=== PATIENT | female | born 1955 | race Caucasian/White ===

== ENCOUNTER 2017-04-22 14:46 | Inpatient (IN) | payer MEDICARE ==
[2017-04-22 15:15] VITALS: BMI 17.5
[2017-04-22] MEDS ORDERED: Temazepam 15 MG CAP PO PRN (15:21)
[2017-04-22] MEDS ORDERED: Milk Of Magnesia 30 ML UDCUP PO PRN (15:25)
[2017-04-22 15:57] LABS: Hematocrit 50.7 % (36.0-47.0); Mean Platelet Volume 7.9 fL (7.4-10.4); Red Blood Cell (RBC) Count 4.78 mill/uL (4.20-5.40); White Blood Cell (WBC) Count 11.1 thou/uL (4.8-10.8)
[2017-04-22 16:28] LABS: #Basophils 0.1 thou/uL (0.0-0.2); #Monocytes 0.1 thou/uL (0.11-0.59); #Neutrophils 9.9 thou/uL (1.40-6.50); %Eosinophils 0.2 % (0.0-10.0); %Lymphocytes 9.3 % (21.0-51.0); %Monocytes 0.9 % (0.0-10.0); Macrocytosis SLIGHT = 6-15 cells (100X) (0-5/hpf)
[2017-04-22] MEDS ORDERED: Meropenem 2 GM in Admixture Fee 1 EACH IVPB SCH (17:00)
[2017-04-22] MEDS: Sodium Chloride 0.45% 1,000 ML IV SCH (17:32)
--- NOTE | 2017-04-22 17:41 | RAD ---
PORTABLE AP CHEST X-RAY 04/22/17 HISTORY: Pneumonia. COMPARISON: 02/06/17 as well as study on 10/05/16. Again noted are diffuse increased interstitial opacities throughout the lungs bilaterally, much grea ter in the right mid lung zone and at the right lung base. There is stable blunting of the right lat eral costophrenic angle probably related to pleural and parenchymal scarring. Cardiac silhouette is magnified by projection but does appear mildly enlarged. This is also a stable finding. There has be en no interval change compared to prior exams. IMPRESSION: 1. Stable interstitial fibrotic lung changes especially greater at the right lung. 2. Cardiomegaly. 3. No acute cardiopulmonary process. POS: [facility]
[2017-04-22] MEDS: Meropenem 2 GM in Sodium Chloride 0.9% 100 ML IVPB SCH (17:54)
--- NOTE | 2017-04-22 20:37 | HP ---
HISTORY OF PRESENT ILLNESS: Ms. Loza is a 62-year-old female, who has noncystic fibrosis, severe bronchiectasis, pulmonary fibrosis associated with that. She is Pseudomonas colonized. She presented 2 weeks ago with complaints of hypoxia and more shortness of breath. She was blaming it on her nebulized aminoglycoside. I placed her on Cipro and prednisone. She presents today with complaints of having hemoptysis for the last 2 weeks. She says she not feel any better, although she also says she did not feel any worse. She subsequently was admitted for IV antimicrobial therapy. PAST MEDICAL HISTORY: Remarkable for, 1. History of bronchiectasis worked up extensively at [facility]. 2. History of Pseudomonas colonization. 3. No history of mycobacterial infection or colonization. FAMILY HISTORY: Negative for inherited lung disease. SOCIAL HISTORY: She is a nonsmoker, nondrinker. She smoked when she was very young. PHYSICAL EXAMINATION: VITAL SIGNS: In the office, she is afebrile, heart rate 92, respiratory rate is 20, oximetry is in the mid 80s on 3 liter flow, blood pressure 150/80. HEENT: Pupils are equal. Sclerae is anicteric. NECK: Supple. LUNGS: Remarkable for crackles in both lung bases care home up. HEART: Regular rhythm. S1 and S2 are normal. ABDOMEN: Soft and nontender. EXTREMITIES: Without clubbing, cyanosis, or edema. LABORATORY: pending. Chest x-ray is pending. IMPRESSION: Bronchitis with hemoptysis with underlying severe bronchiectasis. PLAN: Admission for IV antibiotics, IV steroids, nebulizer treatments, serial exams. Sputum and blood will be cultured. JEAND
[2017-04-22] MEDS: Famotidine 20 MG TAB PO SCH (20:40)
[2017-04-22] MEDS: guaiFENesin ER 600 MG TAB PO SCH (20:40)
--- NOTE | 2017-04-22 22:30 | CON ---
DATE OF CONSULTATION: 04/22/2017 REASON: Dyspnea, worsening cough with sputum production. HISTORY OF PRESENT ILLNESS: A 62-year-old history of non-cystic fibrosis bronchiectasis, admissions for management of respiratory decompensation. Usually, she is admitted, the same organism has been isolated repeatedly and it is a fairly sensitive strain of Pseudomonas aeruginosa. The right side is the most of the destructive areas of bronchiectasis. She is using gentamicin by an inhalation at home to try to forestall the need for admission. This time, she started having worsening sputum production with greenish appearance and sometimes hemoptysis, feeling fatigued, and more dyspneic. No fever or chills. No headaches, no sore throat, odynophagia, dysphagia. No chest pain or abdominal pain, no diarrhea, no genitourinary symptoms, no joint symptoms. PAST MEDICAL HISTORY: No cystic fibrosis, bronchiectasis, colonization with Pseudomonas aeruginosa, recent episode of influenza B infection. PAST SURGICAL HISTORY: Oophorectomy. SOCIAL HISTORY: Former smoker up to age of 23 and never smoked since. FAMILY HISTORY: Coronary artery disease. MEDICATIONS: Had been on Mucinex, Lovenox, and gentamicin inhaler. PHYSICAL EXAMINATION: VITAL SIGNS: T-max 98, BP 160/100, pulse 116, respiratory rate 24, O2 sat 88% on 4 liters. She actually appears the usual state, I see a lot of major changes. She is obviously tachypneic but does not appear to have labored breathing, very shallow respirations. SKIN: With no areas of skin breakdown. No petechia. Peripheral IV access. No lymphadenopathy. HEENT: Ocular movements are conjugate. Sclerae white. Pupils are equal. Oral cavity moist. NECK: Supple. No jugular venous distention. LUNGS: Quite coarse breath sounds with very coarse crackles particularly along the right side, but also on the left at the base. No wheezing. HEART: S1, S2 with regular rate. No S3 or S4. ABDOMEN: Soft, not distended, no tenderness. No ascites. No bladder distention and joint examination appears to be normal. She moves all extremities equally. NEUROLOGIC: Cognitive function appears to be intact. LABORATORY DATA: White cell count of 11.1, hemoglobin 15, platelets 261. Previous chemistry results with creatinine 0.82. BNP 1477 in September and she had a positive influenza B screen in September. ASSESSMENT AND DISCUSSION: Non-cystic fibrosis bronchiectasis with exacerbation. Patient will have to be started on Zosyn in view of the recent susceptibility results and check respiratory virus PCR from nasopharynx. MTDD
[2017-04-23] MEDS: Meropenem 2 GM in Sodium Chloride 0.9% 100 ML IVPB SCH (05:44)
[2017-04-23] MEDS ORDERED: FLU VACC QS2017-18 36 mo. & older 0.5 ML SYRINGE IM ONE (09:00)
[2017-04-23] MEDS: Sodium Chloride 0.45% 1,000 ML IV SCH ×2 (09:37→22:14)
[2017-04-23] MEDS: guaiFENesin ER 600 MG TAB PO SCH ×2 (09:38→21:05)
[2017-04-23] MEDS: Famotidine 20 MG TAB PO SCH ×2 (09:39→21:05)
[2017-04-23] MEDS: Enoxaparin Sodium 30 MG/0.3 ML SYRINGE SC SCH (09:39)
--- NOTE | 2017-04-23 13:05 | PRG ---
DATE OF SERVICE: 04/23/2017 SUBJECTIVE: Ms. Loza says she is feeling better today. OBJECTIVE: VITAL SIGNS: She is afebrile. Heart rate is 78, respiratory rate is 18, oximetry is 93% on 4 liter s and blood pressure 136/76. LUNGS: Remarkable for crackles bilaterally. HEART: Regular rhythm. ABDOMEN: Soft. IMAGING DATA: Chest radiograph showed no new alveolar infiltrates. IMPRESSION: 1. Severe non-cystic fibrosis bronchiectasis. 2. Bronchitis with an exacerbation of chronic obstructive pulmonary disease. 3. Acute on chronic respiratory failure on home, noninvasive ventilation at night. PLAN: Continue steroids and antimicrobial therapy. Blood cultures are negative so far. Sputum cul tures are negative so far. Gram-negative rods are seen on the Gram stain and I suspect this will be Pseudomonas. I have encouraged her to increase her activity today.
[2017-04-23] MEDS: Piperacillin/Tazobactam 4.5 GM in Sodium Chloride 0.9% 100 ML IVPB SCH ×3 (13:10→23:46)
[2017-04-23] MEDS: ALPRAZolam 0.25 MG TAB PO PRN (21:10)
[2017-04-24] MEDS: Piperacillin/Tazobactam 4.5 GM in Sodium Chloride 0.9% 100 ML IVPB SCH ×4 (05:39→23:31)
[2017-04-24] MEDS: Enoxaparin Sodium 30 MG/0.3 ML SYRINGE SC SCH (08:42)
[2017-04-24] MEDS: Famotidine 20 MG TAB PO SCH ×2 (08:42→21:11)
[2017-04-24] MEDS: guaiFENesin ER 600 MG TAB PO SCH ×2 (08:42→21:11)
[2017-04-24] MEDS: Sodium Chloride 0.45% 1,000 ML IV SCH ×2 (08:49→12:40)
[2017-04-24] MEDS: ALPRAZolam 0.25 MG TAB PO PRN (12:40)
--- NOTE | 2017-04-24 20:07 | PRG ---
DATE OF SERVICE: 04/24/2017 OBJECTIVE: VITAL SIGNS: Ms. Loza is afebrile, heart rate 88-114, respiratory rate is 20, oximetry is 92 on 4 li ters, and blood pressure 152/93. LUNGS: She still has crackles diffusely as always. HEART: Regular rhythm. ABDOMEN: Soft. Micro was reviewed. Blood culture grew gram positive. I suspect this is a contaminant, The other blood culture is negative at 48 hours. Respiratory cultures did not isolate Pseudomonas surprisingl y. IMPRESSION: Hemoptysis, status post 2 weeks of Cipro. She has improved with IV steroids, probably more than the IV antibiotics, but that is impossible to know. We will continue IV antibiotics for n ow, but at some point in the next day or two, we probably need to switch her to p.o. antibiotics. I have planned to discuss this with Infectious Disease.
[2017-04-25] MEDS: Sodium Chloride 0.45% 1,000 ML IV SCH ×2 (05:29→11:58)
[2017-04-25] MEDS: Piperacillin/Tazobactam 4.5 GM in Sodium Chloride 0.9% 100 ML IVPB SCH ×3 (05:29→17:23)
[2017-04-25] MEDS: Famotidine 20 MG TAB PO SCH ×2 (08:58→20:48)
[2017-04-25] MEDS: guaiFENesin ER 600 MG TAB PO SCH ×2 (08:58→20:48)
[2017-04-25] MEDS: Enoxaparin Sodium 30 MG/0.3 ML SYRINGE SC SCH (09:02)
--- NOTE | 2017-04-25 19:03 | PRG ---
DATE OF SERVICE: 04/25/2017 SUBJECTIVE: Ms. Loza is sitting by the bedside, sleeps about the same, still quite labored breathing , some cough, but no sputum production. No abdominal pain or diarrhea. Voiding without difficulty. No neurological symptoms. OBJECTIVE: VITAL SIGNS: T-max 97.6, tachycardic, little bit tachypneic at 22 and O2 sat 90% to 92% on 4 liters . Blood pressure 150/87. LUNGS: Some periorbital edema, coarse inspiratory crackles scattered throughout the lung nguyen as noted previously, jugular venous distention is noted on expiration only. HEART: S1, S2, regular rate, no S3 or S4. ABDOMEN: Soft and not distended, no trace edema in lower extremities. NEUROLOGIC: Nonfocal. LABORATORY DATA: White cell count 11.1, hemoglobin 15, MCV 106 and neutrophil 88%, and he is curren tly receiving Zosyn, methylprednisolone. The organism isolated again to P. aeruginosa. Previous st rains were fairly susceptible to various antimicrobials. ASSESSMENT AND DISCUSSION: Non cystic fibrosis bronchiectasis with exacerbation. No obvious pneumo nitis, just the ground-glass pattern as noted previously. Discharge planning to depend on further c linical improvement. No additional fracture identified for the decompensation at this point in time .
--- NOTE | 2017-04-25 21:33 | PRG ---
DATE OF SERVICE: 04/25/2017 SUBJECTIVE: Ms. Loza did well overnight. She says she wants to go home, which she nervous about goi ng home. OBJECTIVE: VITAL SIGNS: She is afebrile, heart rate 114, respiratory rate 22, oximetry is 92 on 4 liters, bloo d pressure 151/87. LUNGS: Remarkable for crackles bilaterally as always. HEART: Regular rhythm. ABDOMEN: Soft. PLAN: I just noticed the BNP was not run. I did write an order for one on admission, so I will ord ered one for in the morning. I would like to discharge her in the morning if possible.
[2017-04-26] MEDS: Piperacillin/Tazobactam 4.5 GM in Sodium Chloride 0.9% 100 ML IVPB SCH ×3 (00:03→12:08)
[2017-04-26] MEDS: Sodium Chloride 0.45% 1,000 ML IV SCH (04:34)
[2017-04-26 05:47] LABS: Anion Gap 11 mmol/L (10-20); BUN (Urea Nitrogen) 29 mg/dL (9.8-20.1); Calc. Creatinine Clearance 50 mL/min (70-130); Calcium 8.4 mg/dL (7.8-10.44); Carbon Dioxide 32 mmol/L (23-31); Chloride 102 mmol/L (98-107); Estimated GFR-MDRD 80
[2017-04-26 06:16] LABS: Hematocrit 44.3 % (36.0-47.0); Hypochromia SLIGHT = 6-15 cells (100X) (0-5/hpf); Macrocytosis SLIGHT = 6-15 cells (100X) (0-5/hpf); Red Blood Cell (RBC) Count 4.18 mill/uL (4.20-5.40); White Blood Cell (WBC) Count 8.8 thou/uL (4.8-10.8)
[2017-04-26 07:52] VITALS: BP 182/91; TEMP 97.7
[2017-04-26] MEDS: Famotidine 20 MG TAB PO SCH (08:08)
[2017-04-26] MEDS: guaiFENesin ER 600 MG TAB PO SCH (08:08)
[2017-04-26] MEDS: Enoxaparin Sodium 30 MG/0.3 ML SYRINGE SC SCH (08:09)
--- NOTE | 2017-04-26 20:09 | DIS ---
Ms. Loza did well. Overnight, said she is feeling back to her baseline. She is wearing her noninvas epifanio ventilation at night. Her dyspnea on excretion improved. PHYSICAL EXAMINATION: VITAL SIGNS: She is afebrile, heart rate is 100, respiratory rate is 18. Blood pressure is little bit elevated this morning but was 129/83 earlier. She will be discharged home today. DISCHARGE DIAGNOSES: 1. Non-cystic fibrosis bronchiectasis, advanced. 2. Chronic respiratory failure, on nocturnal ventilation and oxygen 24 hours a day. 3. Bronchitis with hemoptysis unresponsive to outpatient antimicrobial therapy. 4. DO NOT RESUSCITATE status. 5. History of Pseudomonas colonization with negative cultures this admission. Please see history and physical for details. Briefly, Ms. Loza had 2 weeks of antibiotics and prednisone with no improvement of cough and dyspnea on exertion. She reported 2 weeks of intermittent hemoptysis when she came to see me in followup, s o she was placed in the hospital and started on IV antimicrobial therapy, steroids, and nebulizer tr eatments. She has improved to a point near baseline. She will be discharged home on Omnicef for another week 300 mg twice a day, prednisone 40 for 5 days , 30 for 5 days and 20 mg a day until she sees me in 2 weeks. She started azithromycin that she ronnie es Saturday, Saturday, and Saturday. She will go back on her nebulized aminoglycoside one she is off o f her antibiotics by mouth. She will continue nebulizer treatments 4 times a day. I have encouraged her to get into an exercise program where she is walking 15 minutes twice a day, riding an exercise bicycle.
== END 2017-04-26 13:08 | disposition home or self-care (01) | DRG 190 ==
LOC: T4-B 14:46
PROVIDERS: ADMIT Internal Medicine Critical Care Medicine; ATTEND Internal Medicine Critical Care Medicine
PROC: 5A09357 Assistance with Respiratory Ventilation, Less than 24 Consecutive Hours, Continuous Positive Airway Pressure (ICD-10-PCS; principal; 2017-04-23)
PROC: 5A09357 Assistance with Respiratory Ventilation, Less than 24 Consecutive Hours, Continuous Positive Airway Pressure (ICD-10-PCS; 2017-04-24)
PROC: 5A09357 Assistance with Respiratory Ventilation, Less than 24 Consecutive Hours, Continuous Positive Airway Pressure (ICD-10-PCS; 2017-04-25)
DX: J47.1 Bronchiectasis with (acute) exacerbation (principal); J96.20 Acute and chronic respiratory failure, unspecified whether with hypoxia or hypercapnia; J84.10 Pulmonary fibrosis, unspecified; R04.2 Hemoptysis; J44.1 Chronic obstructive pulmonary disease with (acute) exacerbation; Z99.81 Dependence on supplemental oxygen; J40 Bronchitis, not specified as acute or chronic; Z22.39 Carrier of other specified bacterial diseases; Z66 Do not resuscitate; Z87.891 Personal history of nicotine dependence
CPT/HCPCS: 36415; 71010; 80048; 85007; 85025; 85027; 87040; 87070; 87077; 87205; 87633; 94640; 94660; A4216; G8978-GP-CK; G8979-GP-CJ; J1650; J2185; J2543; J2920; J7050; J7620